=== PATIENT | female | born 1975 | race Caucasian/White ===

== ENCOUNTER 2021-11-20 07:04 | Day surgery (SDC) | payer OTHER ==
[~2021-11-20] VITALS: Ht 172.7 cm; Wt 100.0 kg
[2021-11-20 07:15] VITALS: BP 125/90
[2021-11-20] MEDS ORDERED: METO-411 PO (07:20)
[2021-11-20] MEDS ORDERED: MIDAZolam 1 MG/ML 5ML VIAL ONE (07:51)
[2021-11-20] MEDS ORDERED: LIDOcaine Viscous 15ml cup ONE (07:51)
[2021-11-20] MEDS ORDERED: diphenhydrAMINE 50 mg/ml inj ONE (07:51)
[2021-11-20] MEDS ORDERED: fentaNYL/PF 50MCG/1 ML 2ML syringe ONE (07:51)
[2021-11-20 08:50] VITALS: BP 145/69
[2021-11-20 09:00] VITALS: BP 111/73
[2021-11-20 09:10] VITALS: BP 123/65
[2021-11-20 09:20] VITALS: BP 119/71
== END 2021-11-20 09:30 | disposition home or self-care (01) ==
LOC: GI LAB 07:04
PROVIDERS: ATTEND Internal Medicine Gastroenterology
DX: R19.7 Diarrhea, unspecified (principal); K57.30 Diverticulosis of large intestine without perforation or abscess without bleeding; K21.00 Gastro-esophageal reflux disease with esophagitis, without bleeding; K44.9 Diaphragmatic hernia without obstruction or gangrene; K31.89 Other diseases of stomach and duodenum; Z79.899 Other long term (current) drug therapy
CPT/HCPCS: 43239; 45380; J1200; J2250; J3010; J7030; Z7512; 99152; 99153; A4620